=== PATIENT | male | born 1955 | race Caucasian/White ===

== ENCOUNTER → 2020-03-05 | Outpatient (CLI) | payer BC ==
[~2020-03-05] MED LIST: CATHETER FLUSH 10 ML SYR IV PRN; HOLD METFORMIN - RECEIVED CONTRAST 20 ML VIAL IV SCH; IOHEXOL 350 MG/ML 100 ML (OMNIPAQUE 350) VIAL IV ONE; NS 100 ML (IVPB) BAG IV ONE
[2020-03-05 09:10] LABS: CREATININE SERUM 1.18 MG/DL (0.60-1.30); GFR ESTIMATED > 60
[2020-03-05 09:11] LABS: BUN/CREATININE RATIO 24
--- NOTE | 2020-03-05 09:53 | Diagnostic Imaging Report ---
EXAMINATION: CT Abdomen and Pelvis with intravenous contrast. TECHNIQUE: Multiple contiguous axial images were obtained through the abdomen and pelvis after the uneventful administration of intravenous contrast. All CT scans use one or more of the following dose optimizing techniques: automated exposure control, MA and/or KvP adjustment based on a patient size and exam type, or iterative reconstruction. HISTORY: ABDOMINAL PAIN COMPARISON: None available. FINDINGS: Lung bases: Bibasilar dependent atelectasis. Solid organs: The liver is normal without focal lesion. The gallbladder is normal. There is no biliary ductal dilation. Pancreas is normal. Spleen is normal. Adrenal glands are normal. There is a 0.6 cm calculus within the proximal left ureter resulting in mild left hydroureter. No significant hydronephrosis. Right kidney is unremarkable without hydronephrosis. Bowel: The stomach and small bowel are normal without obstruction. There is scattered colonic diverticulosis. The appendix is normal. Peritoneum: There is mild abdominal and pelvic ascites. No intraperitoneal free air. No suspicious lymphadenopathy. Vasculature: Calcification of the aorta without aneurysm. Musculoskeletal: Degenerative changes of the spine without suspicious osseous lesion or compression fracture. There is a small umbilical hernia containing ascitic fluid. Mild anasarca. Pelvis: The prostate gland is normal. The urinary bladder is normal. IMPRESSION: 1. A 0.6 cm calculus within the proximal left ureter resulting in mild left hydroureter. No significant hydronephrosis. 2. Mild ascites. 3. Colonic diverticulosis without findings of diverticulitis. Dictated by: Dictated on workstation # [id number]
== END ==
LOC: RAD 09:45
PROVIDERS: ATTEND Surgery
DX: Z01.812 Encounter for preprocedural laboratory examination (principal); K57.30 Diverticulosis of large intestine without perforation or abscess without bleeding; N13.2 Hydronephrosis with renal and ureteral calculous obstruction; R18.8 Other ascites
CPT/HCPCS: 36415; 74177; 82565; 84520

== ENCOUNTER 2021-04-19 19:15 | Emergency (ER) | payer BC ==
[~2021-04-19] VITALS: Ht 187 cm; Wt 165.0 kg
--- OUTSIDE RECORDS SUMMARY | 2021-04-19 19:21 | XMS REPORT | Clinical Summary ---
Author Organization Unknown Address Unknown Phone Unavailable Care Team Providers Care Mixer Operator Tablets Name Role Phone Dr. Amauri MIRANDA DO Unavailable Dea Doan MA Unavailable Unavailable Social History Code Name Start Date Stop Date Never Smoker 09/16/2010 Sex: Male Problems SNOMED Problem Status Date Discovered Last Modifie d Date Shortness of breath Active 04/15/2021 04/15/20 Chest pain, unspecified Active 04/15/202103/26 Major depressive disorder, single episode, unspecified Active 01/17/2021 03/11/2021 Generalized anxiety disorder Active 03/11/2021 03/11/2021 Essential (primary) hypertension Active 08/14/19 10 03/11/2021 Diarrhea, unspecified Active 03/11/20212020 Other specified abnormal immunological findings in ser um Active 02/28/2021 02/28/2021 Systemic involvement of connective tissue, unspecified Active 02/28/2021 02/28/2021 Body mass index [BMI]40.0-44.9, adult Active 07/202002/28/2021 Primary insomnia Active 01/17/2021 02/19/2021 Major depressive disorder, single episode, moderate Ac tive 10/25/2020 02/19/2021 Acute cystitis without hematuria Active 01/25/20 21 01/24/2021 Mixed hyperlipidemia Active 08/13/2009 021 Body mass index (BMI) 40.0-44.9, adult Active 01/17/2021 [id number] Encounter for screening for malignant neoplasm o f prostate Active 11/28/2020 11/28/2020 Chronic fatigue, unspecified Active 11/28/2020 11/28/2020 Allergic contact dermatitis due to plants, except food Active 10/31/2020 10/31/2020 Presence of prosthetic heart valve Active 201905/16/2020 Cellulitis of right lower limb Active 05/08/2020 05/08/2020 Cellulitis of left lower limb Active 05/08/2020 05/08/2020 Body mass index [BMI] 36.0-36.9, adult Active 05/08/2020 Other abnormal glucose Active 03/02/201804/03 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) Active 11/26/2018 04/03/2020 Unilateral inguinal hernia, without obstruction or gangrene, not specified as recurrent Active 01/31/2020 01/31/2020 Other fatigue Active 09/29/2019 09/29/2019 Nonrheumatic aortic (valve) stenosis Active 02/2203/17/2019 Body mass index (BMI) 30.0-30.9, adult Active 03/17/2019 923000031 Chronic diastolic (congestive) heart failure Active 07/20/2014 03/15/2019 Gastro-esophageal reflux disease without esophagitis A ctive 11/26/2018 11/26/2018 GERD Active 11/26/2018 11/26/2018 Iron deficiency anemia, due to chronic blood loss Acti ve 11/26/2018 11/26/2018 Body mass index (BMI) 32.0-32.9, adult Active 11/26/2018 Body Mass Index 32.0-32.9, adult Active 11/27/19 19 11/26/2018 Body Mass Index 33.0-33.9, adult Active 07/21/19 19 09/06/2018 Body mass index (BMI) 33.0-33.9, adult Active 09/06/2018 [id number] Irritable bowel syndrome with diarrhea Active 07/21/2018 [id number] IBS, diarrhea prominent type Active 04/14/2018 07/21/2018 Body mass index (BMI) 37.0-37.9, adult Active 04/14/2018 Body Mass Index 37.0-37.9, adult Active 04/14/20 18 04/14/2018 Body Mass Index 39.0-39.9, adult Active 03/04/20 18 03/04/2018 Body mass index (BMI) 39.0-39.9, adult Active 03/04/2018 Encounter for screening for malignant neoplasm of colo n Active 07/10/2017 07/10/2017 Screening for cancer of colon Active 07/10/2017 07/10/2017 Body Mass Index 40.0-44.9, adult Active 018 07/10/2017 Body Mass Index 45.0-49.9, adult Active 017 08/12/2016 Body mass index (BMI) 45.0-49.9, adult Active 08/12/2016 [id number] Sleep apnea, NEC Active 01/18/2016 08/12/2016 [id number] Other sleep apnea Active 01/18/2016 08/12/2016 Diastolic heart failure, chronic Active 07/20/19 15 03/04/2018 Testosterone deficiency Active 12/01/2012 Fatigue Active 01/12/2012 6205003 Benign HTN Active 11/25/2011 09/06/2018 Attention deficit disorder, without hyperactivity Acti ve 11/04/2010 Patient visit for senior care (current) use of other blair gs Active 08/06/2010 Microscopic hematuria Active 08/05/2010 [id number] Aortic stenosis Active 03/11/2010 03/04/2018 5430239 HTN Active 11/14/2009 07/10/2017 Depression Active 11/14/2009 Essential hypertension Active 08/13/2009 [id number] Mixed hyperlipidemia Active 08/13/2009 019 Heart murmur, undiagnosed Active 11/14/2009 Depression Active 08/13/2009 Moderate depression Active 08/13/2009 4782653 Hypertension Active 08/13/2009 07/07/2016 Medications Brand Strength Dose/Route/Frequency RxNorm Code Date Started Date Discontinued Status MVI one daily No Entry No Entry 0 09/16/2010 Curre nt Krill Oil No Entry No Entry 0 03/04/2018 Current aspirin 81 mg oral tablet, delayed release (ente bulmaro coated) take 1 tablet (81 mg) by oral route once daily 911586 Cur rent Vitamin D3 50 mcg (2,000 unit) oral tablet No Entry [id number] Current CoQ-10 No Entry No Entry 0 Stopped B12 No Entry No Entry 0 Current ferrous sulfate 325 mg (65 mg iron) oral tablet Take 1 t ablet by mouth once daily [id number] 03/17/2019 Current temazepam 30 mg oral capsule take 1 capsule (30 m g) by oral route once daily at bedtime as needed [id number] 02/19/2021 Current sertraline 100 mg oral tablet take 1 tablet (100 mg) by ora l route once daily 108167 02/19/2021 Current metroNIDAZOLE 500 mg oral tablet take 1 tablet (500 m g) by oral route 3 times per day 760783 03/11/2021 Current ARIPiprazole 2 mg oral tablet take 1 tablet (2 mg) by oral [place] once daily 234664 03/11/2021 Current sertraline 50 mg oral tablet Take 1 tablet by mouth once daily 31 2941 01/17/2021 Current carvediloL 12.5 mg oral tablet Take 1 tablet by mouth once daily with food 423872 01/17/2021 Current amLODIPine 10 mg oral tablet Take 1 tablet by mouth once daily 30 8135 12/19/2020 Current Lasix 20 mg oral tablet Take 2 tablets by mouth twice daily 953436 02/14/2014 Current Allergies No allergies listed. Procedures / Labs No procedures listed. Immunizations Date Vaccine Status CVX 10/10/2020 COVID-19, mRNA, LNP-S, PF, 100 mcg/0.5 mL dose C ompleted 207 11/07/2020 COVID-19, mRNA, LNP-S, PF, 100 mcg/0.5 mL dose C ompleted 207 03/05/2018 Prevnar 13 (Pneumococcal PCV 13) Completed 133 03/04/2018 Flucelvax Quadrivalent pf (4+ years) Completed 171 03/08/2015 Fluvirin (4 + years dose) Completed 141 07/07/2016 Fluzone Quadrivalent (3+ years) Completed 158 07/10/2017 Adacel (Tdap) Completed 115 Vital Signs No vital signs listed. Assessment * R07.9 Chest pain, unspecified * R06.02 Shortness of breath Plan of Treatment * Chest pain, unspecified MEDICATIONS: (no change to current medication regimen) (see today's med list) RE COMMENDATIONS given include: Go to nearest E.R. for evaluation. Admit to the em ergency department. * Orders: [id number] - Established patient outpatient visit, Moderate MDM and/or 30-39 minutes * Shortness of breath Admit to the emergency department ( Nearest E.R. ). * Orders: [id number] - Patient encounter was documented using a [facility] certified EMR Referrals No referral reasons listed. Functional Status No Functional Status Listed Mental Status * NEGATIVE Goals No Goals listed. Health Concerns No Health Concerns listed. Health Status Evaluations/Outcomes No Evaluations/Outcomes listed. Interventions No Interventions listed. Lab Results No lab results listed. Encounter Diagnosis * Chest pain, unspecified Patient to be evaluated for chest pain, unspecified. The discomfort is located primarily in the in the center of the chest. There is no radiation. The pain i nitially began one week ago. Typically, individual episodes of chest pain last less than one minute. He characterizes the pain as mild to moderate in intensit y and aching. It seems to be worse with walking. Pain improves with rest. Ass ociated symptoms include dyspnea. * Shortness of breath Additionally, he presents with history of shortness of breath. this has been no oliver for the past 3 weeks. Its course has been worsening. Associated symptoms i nclude chest tightness and OTHER (enter). Alleviating factors include: rest.
--- OUTSIDE RECORDS SUMMARY | 2021-04-19 19:21 | XMS REPORT | Clinical Summary ---
Author Author [facility] Organization [facility] Address Unknown Phone Unavailable Care Team Providers Care Jalousies Installer Name Role Phone PCP Unavailable Source Comments [facility] (Labor and Delivery) documents do not appear in the [facility] Allergies Not on File Medications Please verify current medications with patient. Not on file Active Problems Not on file Social History Date Tobacco Use Types Packs/Day Years Used Never Assessed Sex Assigned at Date Recorded Not on file Last Filed Vital Signs Not on file Plan of Treatment Health Maintenance Due Date Last Done Comments CT Colonography 1955 Colonoscopy 1955 Colorectal Cancer 1955 Screening DNA-based stool test 1955 (Cologuard) Lipid Panel 1955 Sigmoidoscopy 1955 gFOBT or FIT 1955 COVID-19 Vaccine (1) 1969 Influenza Vaccine (#1) 2021 Pneumococcal Vaccine: 65+ 2022 Years (1 of 1 - PPSV23) HPV Vaccine Aged Out No longer eligible based on patient's age to complete this topic Hepatitis A Vaccine Aged Out No longer eligible based on patient's age to complete this topic Hepatitis B Vaccine Aged Out No longer eligible based on patient's age to complete this topic Hib Vaccine Aged Out No longer eligible based on patient's age to complete this topic IPV Vaccine Aged Out No longer eligible based on patient's age to complete this topic Meningococcal Vaccine Aged Out No longer eligib le based on patient's age to (MCV4) complete this topic Pneumococcal Vaccine: Aged Out No longer eligib le based on patient's age to Pediatrics (0 to 5 Years) complete this topic and At-Risk Patients (6 to 64 Years) Rotavirus Vaccine Aged Out No longer eligible based on patient's age to complete this topic Results Not on filefrom Last 3 Months
--- OUTSIDE RECORDS SUMMARY | 2021-04-19 19:21 | XMS REPORT | Clinical Summary ---
Author Author [facility] Organization [facility] Address Unknown Phone Unavailable Care Team Providers Care Oenologist Name Role Phone Vernon Agosto MD PCP Allergies No known active allergies Medications End Date Status Medication Sig Dispensed Refills Start Date Active lovastatin (MEVACOR) 20 Take 1 tablet 0 03/04/ 201 MG tablet by mouth 8 daily. Active carvedilol (COREG) 12.5 0 MG tablet 8 Active furosemide (LASIX) 20 MG Take 1 tablet 0 03/04 tablet by mouth 8 daily. Active VIBERZI 75 mg tab Take 1 tablet 0 by mouth 2 8 (two) times a day with meals. Active omeprazole (PriLOSEC) 20 Take 1 0 03/04 MG capsule capsule by 8 mouth daily. Active aspirin 81 MG tablet Take 81 mg by 0 mouth daily. Active multivitamin Take 1 tablet 0 (multivitamin) tab by mouth daily. Active fish oil-omega-3 fatty Take 2 g by 0 acids 300-1,000 mg mouth daily. capsule Active b complex vitamins Take 1 0 capsule capsule by mouth daily. Active Saccharomyces boulardii Take 250 mg 0 (FLORASTOR) 250 mg by mouth 2 capsule (two) times a day. Active Problems Not on file Encounters Not on filefrom Last 3 Months Immunizations Not on file Social History Date Tobacco Use Types Packs/Day Years Used Never Smoker Smokeless Tobacco: Never Used Tobacco Cessation: Counseling Given: Yes Sex Assigned at Date Recorded Not on file Last Filed Vital Signs Reading Time Taken Comments Vital Sign 120/68 06/01/2018 11:47 AM [employer] Blood Pressure 56 06/01/2018 11:47 AM [employer] O[employer] Pulse 36.9 C (98.5 F) 06/01/2018 11:47 AM [employer] OPERATOR Temperature 16 06/01/2018 11:47 AM [employer] OPERATOR Respiratory Rate 99% 06/01/2018 11:47 AM [employer] OPERATOR Oxygen Saturation - - Inhaled Oxygen Concentration 132 kg (290 lb) 06/01/2018 11:47 AM [employer] OPERATOR Weight 188 cm (6' 2") 06/01/2018 11:47 AM [employer] OPERATOR Height 37.23 06/01/2018 11:47 AM [employer] OPER[employer] Body Mass Index Plan of Treatment Health Maintenance Due Date Last Done Comments Annual FOBT: Colon Cancer 10/01/2007 Screening Colonoscopy 10/01/2007 Goals Not on file Implants Not on file Procedures Not on filefrom Last 3 Months Results Not on filefrom Last 3 Months Additional Health Concerns Not on file Care Teams Start Date End Date Oenologist Relationship Specialty 06/01/18 Vernon Agosto MD PCP - General Family [address] [facility] [address] [place] [id number]
[2021-04-19] MEDS ORDERED: ACETAMINOPHEN 500 MG TAB (TYLENOL) PO ONE (19:45)
[2021-04-19] MEDS ORDERED: ASPIRIN 81 MG CHEW (CHILDREN'S ASA) PO ONE (19:45)
[2021-04-19] MEDS ORDERED: NITROGLYCERIN 0.4 MG SL TABS BTL 25'S SL PRN (19:45)
[2021-04-19 19:47] LABS: BASOPHILS % (AUTO) 1 % (0-10); EOSINOPHILS # (AUTO) 0.3 10^3/uL (0.0-0.3); EOSINOPHILS % (AUTO) 4 % (0-10); HEMATOCRIT 44 % (40-54); HEMOGLOBIN 14.6 g/dL (13.3-17.7); LYMPHOCYTES # (AUTO) 1.2 10^3/uL (1.0-4.0); LYMPHOCYTES % (AUTO) 18 % (12-44); MEAN CORPUSCULAR HEMOGLOBIN 30 pg (25-34); MEAN CORPUSCULAR HGB CONC 33 g/dL (32-36); MEAN CORPUSCULAR VOLUME 91 fL (80-99); MEAN PLATELET VOLUME 10.4 fL (9.0-12.2); MONOCYTES # (AUTO) 0.8 10^3/uL (0.0-1.0); MONOCYTES % (AUTO) 12 % (0-12); NEUTROPHILS # (AUTO) 4.3 10^3/uL (1.8-7.8); NEUTROPHILS % (AUTO) 65 % (42-75); PLATELET COUNT 148 10^3/uL (130-400); WHITE BLOOD COUNT 6.6 10^3/uL (4.3-11.0)
--- NOTE | 2021-04-19 19:48 | ED Chest Pain ---
General Chief Complaint: Chest Pain Stated Complaint: CHEST PAIN, SOB Nursing Triage Note: patient states since last week-Thursday has been having chest pain. patient states swelling lower ext. left sided chest pain, on/off Source: patient Exam Limitations: no limitations History of Present Illness Date Seen by Provider: Apr 19, 2021 Time Seen by Provider: 19:26 Initial Comments Patient ER by private conveyance with his significant other chief complaint for the past week or so he has been having progressive chest pain from 1-3 out of 10 worse with exertion. Is also having shortness of air. In the last 3 months he is gained 40 pounds. He has a history of heart failure with recovered ejection fraction with his last echo being 55%. At one time it was as low as 25% and he had a heart valve replacement a year ago at [facility]. Primary care is at [facility]. He talked his primary care provider 3 days ago and was told to go to the ER at that time. He says he has been procrastinating. He has been using Tylenol and ibuprofen with marginal relief of his chest pain. No history of coronary disease. Not on blood thinners. No cough but he does have some shortness of air worse with exertion. He says he can no longer walk up a flight of stairs without becoming totally winded. He takes Lasix 40 mg daily and for the past week or so has been increasing that to 40 mg twice daily. Allergies and Home Medications Allergies Coded Allergies: No Allergy Information Available (Unverified , 03/05/20) Patient Home Medication List Home Medication List Reviewed: Yes Review of Systems Review of Systems Constitutional: No chills, No diaphoresis EENTM: No Blurred Vision, No Double Vision Respiratory: Denies Cough, Denies Orthopnea Cardiovascular: Chest Pain; Denies Lightheadedness Gastrointestinal: Denies Abdominal Pain, Denies Constipated, Denies Diarrhea Genitourinary: Denies Burning, Denies Discharge Musculoskeletal: No back pain, No joint pain Skin: No change in color, No pruritus, No rash Psychiatric/Neurological: Denies Headache, Denies Numbness, Denies Paresthesia Hematologic/Lymphatic: Denies Anemia, Denies Blood Clots All Other Systems Reviewed Negative Unless Noted: Yes Past Ipwmdmd-Rcscmn-Kflypp Hx Patient Social History Tobacco Use?: No Use of E-Cig and/or Vaping dev: No Substance use?: No Alcohol Use?: No Pt feels they are or have been: No Immunizations Up To Date First/Initial COVID19 Vaccinat: Altafa Second COVID19 Vaccination Carlos: Moderna COVID19 Vaccine Client Advisor: Sandy Physical Exam Vital Signs Vital Signs - First Documented 04/19/21 19:21 Pulse 53 Resp 20 B/P (MAP) 165/85 (111) Pulse Ox 97 O2 Delivery Room Air Capillary Refill : Less Than 3 Seconds Height, Weight, BMI Height: '" Weight: lbs. oz. kg; 47.00 BMI Method: General Appearance: No Apparent Distress, Obese (Morbid) HEENT: PERRL/EOMI, TMs Normal, Normal ENT Inspection, Pharynx Normal Neck: Full Range of Motion, Normal Inspection Respiratory: Lungs Clear, Normal Breath Sounds, No Accessory Muscle Use, No Respiratory Distress Cardiovascular: Regular Rate, Rhythm, Normal Peripheral Pulses, Other (1+ pitting edema bilateral lower extremity) Gastrointestinal: Normal Bowel Sounds, Non Tender, Soft Extremity: Normal Capillary Refill, Normal Range of Motion, Non Tender, No Calf Tenderness, Pedal Edema (1+ bilateral) Neurologic/Psychiatric: Alert, Oriented x3, No Motor/Sensory Deficits Skin: Normal Color, Warm/Dry Progress/Results/Core Measures Results/Orders Lab Results Laboratory Tests Test 04/19/21 19:25 04/19/21 19:50 04/19/21 22:30 Range/Units White Blood Count 6.6 4.3-11.0 10^3/uL Red Blood Count 4.89 4.30-5.52 10^6/uL Hemoglobin 14.6 13.3-17.7 g/dL Hematocrit 44 40-54 % Mean Corpuscular Volume 91 80-99 fL Mean Corpuscular Hemoglobin 30 25-34 pg Mean Corpuscular Hemoglobin Concent 33 32-36 g/dL Red Cell Distribution Width 13.1 10.0-14.5 % Platelet Count 148 130-400 10^3/uL Mean Platelet Volume 10.4 9.0-12.2 fL Immature Granulocyte % (Auto) 0 % Neutrophils (%) (Auto) 65 42-75 % Lymphocytes (%) (Auto) 18 12-44 % Monocytes (%) (Auto) 12 0-12 % Eosinophils (%) (Auto) 4 0-10 % Basophils (%) (Auto) 1 0-10 % Neutrophils # (Auto) 4.3 1.8-7.8 10^3/uL Lymphocytes # (Auto) 1.2 1.0-4.0 10^3/uL Monocytes # (Auto) 0.8 0.0-1.0 10^3/uL Eosinophils # (Auto) 0.3 0.0-0.3 10^3/uL Basophils # (Auto) 0.0 0.0-0.1 10^3/uL Immature Granulocyte # (Auto) 0.0 0.0-0.1 10^3/uL Prothrombin Time 12.8 12.2-14.7 SEC INR Comment 0.9 0.8-1.4 Activated Partial Thromboplast Time 43 H 24-35 SEC Sodium Level 140 135-145 MMOL/L Potassium Level 3.5 L 3.6-5.0 MMOL/L Chloride Level 104 98-107 MMOL/L Carbon Dioxide Level 25 21-32 MMOL/L Anion Gap 11 5-14 MMOL/L Blood Urea Nitrogen 21 H 7-18 MG/DL Creatinine 1.11 0.60-1.30 MG/DL Estimat Glomerular Filtration Rate 67 BUN/Creatinine Ratio 19 Glucose Level 82 70-105 MG/DL Calcium Level 9.0 8.5-10.1 MG/DL Corrected Calcium 9.0 8.5-10.1 MG/DL Magnesium Level 2.1 1.6-2.4 MG/DL Total Bilirubin 0.6 0.1-1.0 MG/DL Aspartate Amino Transf (AST/SGOT) 28 5-34 U/L Alanine Aminotransferase (ALT/SGPT) 23 0-55 U/L Alkaline Phosphatase 92 40-136 U/L Myoglobin 87.6 10.0-92.0 NG/ML Troponin I < 0.028 0.028 <0.028 NG/ML B-Type Natriuretic Peptide 64.8 <100.0 PG/ML Total Protein 7.1 6.4-8.2 GM/DL Albumin 4.0 3.2-4.5 GM/DL Influenza Type A (RT-PCR) Not Detected Not Detecte Influenza Type B (RT-PCR) Not Detected Not Detecte SARS-CoV-2 RNA (RT-PCR) Not Detected Not Detecte My Orders Orders - ELEONORA TAYLOR Covid 19 Inhouse Test (04/19/21 19:38) Cbc With Automated Diff (04/19/21 19:38) Magnesium (04/19/21 19:38) Chest 1 View, Ap/Pa Only (04/19/21 19:38) Ekg Tracing (04/19/21 19:38) Comprehensive Metabolic Panel (04/19/21 19:38) Myoglobin Serum (04/19/21 19:38) Protime With Inr (04/19/21 19:38) Partial Thromboplastin Time (04/19/21 19:38) O2 (04/19/21 19:38) Monitor-Rhythm Ecg Trace Only (04/19/21 19:38) Lipid Panel (04/20/21 06:00) Ed Iv/Invasive Line Start (04/19/21 19:38) BNP (04/19/21 19:38) Troponin I (04/19/21 19:38) Nitroglycerin 0.4 Mg Btl 25's (Nitrostat (04/19/21 19:45) Aspirin Chewable Tablet (Baby Aspirin Ch (04/19/21 19:45) Acetaminophen Tablet (Tylenol Tablet) (04/19/21 19:45) Influenza A And B By Pcr (04/19/21 19:38) Troponin I (04/19/21 22:30) Medications Given in ED Current Medications Medications Dose Ordered Sig/Abelino Route Start Time Stop Time Status Last Admin Dose Admin Acetaminophen 1,000 mg ONCE ONCE PO 04/19/21 19:45 04/19/21 19:46 DC 04/19/21 19:51 1,000 MG Aspirin 324 mg ONCE ONCE PO 04/19/21 19:45 04/19/21 19:46 DC 04/19/21 19:51 324 MG Nitroglycerin 0.4 mg UD PRN SL 04/19/21 19:45 04/19/21 19:52 0.4 MG Vital Signs/I&O 04/19/21 19:21 Pulse 53 Resp 20 B/P (MAP) 165/85 (111) Pulse Ox 97 O2 Delivery Room Air Blood Pressure Mean: 111 Progress Progress Note #1: Time: 19:51 Progress Note Patient is able to speak in full sentences, taking very few pauses for breaths. Gives a complete history heart failure that seem to be valvular. He is not on blood thinners so I suspect a bioprosthetic valve. He is on Lasix and having increasing swelling, shortness of air orthopnea and exertional dyspnea. We will give him some aspirin, nitroglycerin, Tylenol for the headache and get a BNP CXR. Progress Note #2: Time: 21:10 Progress Note Low suspicion chest pain has been going on for over a week. 2 points HEART Pathway Score. Low risk; 0.9-1.7% 30-day MACE. Repeat troponin at 3 hours and if negative, discharge home with outpatient follow-up. 2230 No evidence of heart failure exacerbation. If the delta troponin is negative he can follow-up with his primary radiology physician team. He certainly had a negative stress test a year ago and cardiac work-up prior to this. The patient's chest pain went away after a single dose of nitroglycerin from a 1 down to a 0. His headache is better with the Tylenol. He has not had any chest pain since then. Blood pressure still 140s systolic. Initial ECG Impression Date: Apr 19, 2021 Initial ECG Impression Time: 19:21 Initial ECG Rate: 53 Initial ECG Rhythm: Normal Sinus Initial ECG Intervals: Normal Initial ECG Impression: Normal Initial ECG Comparisson: No Previous ECG Available Comment Normal sinus rhythm without clinically relevant ST changes. Diagnostic Imaging Diagonstic Imaging: Xray Plain Films/CT/US/NM/MRI: chest Comments [facility] [place], [place] NAME: SASHA CASTILLO [facility] REC#: [id number] PT STATUS: REG ER : 1955 PHYSICIAN: ELEONORA TAYLOR MD ADMIT DATE: 04/19/21/ER Draft Date of Exam:04/19/21 CHEST 1 VIEW, AP/PA ONLY INDICATION: Chest pain. EXAMINATION: Portable chest at 8:55 PM. Heart size and pulmonary vascularity are normal. Lungs are clear. There are no effusions or pneumothoraces. IMPRESSION: No acute abnormalities in the chest. Dictated on workstation # [id number] Dict: [id number]/19/[id number] Trans: 04/19/212099 [facility] [id number] Interpreted by: JAYCE SERRATO MD Electronically signed by: Reviewed: Reviewed by Me Departure Impression Primary Impression: Chest pain Qualified Codes: R07.9 - Chest pain, unspecified Disposition: 01 HOME, SELF-CARE Condition: Stable Departure-Patient Inst. Decision time for Depature: 22:57 Referrals: SAULO WARREN MD Patient Instructions: Chest Pain (DC) Add. Discharge Instructions: Call your radiology physician on Thursday morning and request follow-up appointment in t he next week or 2 to discuss your chest pain. Return to the ER promptly if you are having continuous, worsening chest pain. Continue taking your medications All discharge instructions reviewed with patient and/or family. Voiced understanding. Work/School Note: Work Release Form Date Seen in the Emergency Department: Apr 19, 2021 Return to Work: Apr 23, 2021 Restrictions: Need Release from Doctor Other Restrictions Listed Below: Return to work after released by cardiology. Copy Copies To 1: SAULO WARREN MD, TITUS J Apr 19, 2021 19:48
[2021-04-19 20:03] LABS: INR 0.9 (0.8-1.4); PROTHROMBIN TIME PATIENT 12.8 SEC (12.2-14.7)
[2021-04-19 20:07] LABS: BILIRUBIN,TOTAL 0.6 MG/DL (0.1-1.0); CREATININE SERUM 1.11 MG/DL (0.60-1.30); MAGNESIUM 2.1 MG/DL (1.6-2.4); POTASSIUM 3.5 MMOL/L (3.6-5.0); TOTAL PROTEIN 7.1 GM/DL (6.4-8.2)
--- NOTE | 2021-04-19 21:00 | Diagnostic Imaging Report ---
INDICATION: Chest pain. EXAMINATION: Portable chest at 8:55 PM. Heart size and pulmonary vascularity are normal. Lungs are clear. There are no effusions or pneumothoraces. IMPRESSION: No acute abnormalities in the chest. Dictated by: Dictated on workstation # [id number]
[2021-04-19 23:03] VITALS: BP 132/68
== END 2021-04-19 23:13 | disposition home or self-care (01) ==
LOC: EDUNIT# 19:15 → ER 19:17
DX: R07.9 Chest pain, unspecified (principal); E66.01 Morbid (severe) obesity due to excess calories; Z68.42 Body mass index [BMI] 45.0-49.9, adult; Z20.822 Contact with and (suspected) exposure to COVID-19
CPT/HCPCS: 36415; 71045; 80053; 83735; 83874; 83880; 84484; 85025; 85610; 85730; 87636; 93005; 93041